=== PATIENT | male | born 1960 | race African-American/Black ===

== ENCOUNTER 2019-10-09 15:24 | Emergency (ER) | payer BC, OTHER ==
[2019-10-09 15:45] VITALS: BP 153/108; PULSE 107; O2SAT 94
--- NOTE | 2019-10-09 16:02 | ERPHSYRPT ---
- History of Present Illness Time Seen by Provider: 10/09/19 15:51 Source: patient Exam Limitations: no limitations Patient Subjective Stated Complaint: Pt fell outside on asphalt and landed on the left elbow, pt feels as though his elbow is broken, arm is swollen Triage Nursing Assessment: Pt walked into the ER, left elbow swollen and tender , hypertensive, tachycardic, rates pain 8/10, denies losing concsiousness, denies any other injuries Physician History: pt. states that he fell on asphalt about 2 hrs ago and landed on his left elbow - reports immediate swelling and pain - states he tripped - denies head injury/LOC/any other injuries - left elbow pain- 8/10, intermittent, increases with movement especially elevation of arm, decreased with not moving his arm Occurred: this evening Reason for Fall: tripped Injuries/Pain Location: upper extremity Loss of Consciousness: no loss of consciousness Quality: throbbing Severity of Pain-Max: moderate Severity of Pain-Current: moderate Modifying Factors: Improves With: movement, rest Associated Symptoms (Fall): denies symptoms Allergies/Adverse Reactions: No Known Drug Allergies Allergy (Verified 10/09/19 15:45) Home Medications: No Reportable Medications [No Reported Medications] 10/09/19 [History] - Review of Systems Eyes: No Symptoms Ears, Nose, & Throat: No Symptoms Respiratory: No Symptoms Cardiac: No Symptoms Abdominal/Gastrointestinal: No Symptoms Genitourinary Symptoms: No Symptoms Musculoskeletal: Fall, Injury, Joint Pain, Joint Swelling Skin: No Symptoms Neurological: No Symptoms Psychological: No Symptoms Endocrine: No Symptoms Hematologic/Lymphatic: No Symptoms Immunological/Allergic: No Symptoms All Other Systems: Reviewed and Negative - Past Medical History Pertinent Past Medical History: No - Past Surgical History Past Surgical History: No - Social History Smoking Status: Current every day smoker Exposure to second hand smoke: Yes Drug Use: marijuana Patient Lives Alone: No - Nursing Vital Signs Nursing Vital Signs: Initial Vital Signs Pulse Rate 107 H 10/09/19 15:40 Blood Pressure 153/108 10/09/19 15:40 O2 Sat by Pulse Oximetry 94 L 10/09/19 15:40 Pain Scale Pain Intensity 8 - An Coma Score Best Eye Response (Buchanan): (4) open spontaneously Best Verbal Response (Buchanan): (5) oriented Best Motor Response (An): (6) obeys commands Buchanan Total: 15 - Physical Exam General Appearance: no apparent distress Head Injury: no evidence of injury Eye Exam: PERRL/EOMI, eyes nml inspection ENT Exam: airway nml Neck Exam: supple, trachea midline, full range of motion, normal alignment, normal inspection, No focal neuro deficit Respiratory/Chest Exam: normal breath sounds, No chest tenderness, No respiratory distress Cardiovascular Exam: normal heart sounds, regular rate/rhythm, murmur Gastrointestinal Exam: soft, normal bowel sounds Back Exam: normal inspection Extremity Exam: capillary refill <3 sec, joint swelling, limited range of motion , pain with movement Peripheral Pulses: carotid (R): 4+, carotid (L): 4+, femoral (R): 4+, femoral (L ): 4+, dorsalis-pedis (R): 4+, dorsalis-pedis (L): 4+ Neurologic Exam: alert, oriented x 3, cooperative, 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 Skin Exam: normal color SpO2 Interpretation: normal SpO2: 94 O2 Delivery: Room Air Ordered Tests: Active Orders 24 hr Category Date Time Status ELBOW (MINIMUM 3 VIEWS) Stat Exams 10/09/19 16:02 Completed FOREARM Stat Exams 10/09/19 16:02 Completed HUMERUS Stat Exams 10/09/19 16:02 Taken Medication Summary Discontinued Medications Generic Name Dose Route Start Last Admin Trade Name Levi PRN Reason Stop Dose Admin Tramadol HCl 50 mg 10/09/19 17:01 Ultram 50 Mg PO 10/09/19 17:02 STAT ONE - Progress Progress Note: 10/09/19 17:06 x-ray of left elbow shows olecranon spur, posterior soft tissue swelling, no other lesions arm palced on sling, advised ice packs x 10-15 min TID f/u with pcp in 24-48 hrs for possible PT - Departure Departure Disposition: Home Clinical Impression: Injury of left elbow Condition: Stable Critical Care Time: No Referrals: SIDRA DAWSON [Primary Care Provider] - Additional Instructions: Discharge/Care Plan HEVER SIMS was seen on 10/09/19 in the Emergency Room. The patient was counseled regarding Diagnosis,Lab results, Imaging studies, need for follow up and when to return to the Emergency Room. Prescriptions given: Discharge Note I have spoken with the patient and/or caregivers. I have explained the patient' s condition, diagnosis and treatment plan based on the information available to me at this time. I have answered the patient's and/or caregiver's questions and addressed any concerns. The patient and/or caregivers have as good understanding of the patient's diagnosis, condition and treatment plan as can be expected at this point. The vital signs have been stable. The patient's condition is stable and appropriate for discharge from the emergency department. The patient will pursue further outpatient evaluation with the primary care physician or other designated or consulting physician as outlined in the discharge instructions. The patient and/or caregivers are agreeable to this plan of care and follow-up instructions have been explained in detail. The patient and/or caregivers have received these instruction. The patient/and or caregivers are aware that any significant change in condition or worsening of symptoms should prompt an immediate return to this or the closest emergency department or call 911.
--- NOTE | 2019-10-09 17:02 | XRAY ---
Indication: Pain following fall. Comparison: None 3 views of the left elbow demonstrates olecranon process spur, posterior soft tissue swelling, and posterior soft tissue microcalcifications probable sequela to old injury/inflammation. No other bony, articular, or soft tissue abnormalities.
--- NOTE | 2019-10-09 17:04 | XRAY ---
Indication: Elbow pain following fall. Comparison: None 2 views of the left forearm obtained. No bony, articular, or soft tissue abnormalities. Elbow reported separately.
[2019-10-09] MEDS ORDERED: ULTRAM 50 MG ONE (17:07)
--- NOTE | 2019-10-09 17:07 | XRAY ---
Indication: Elbow pain following fall. Comparison: None 2 views of the left humerus obtained. No bony, articular, or soft tissue abnormalities.
[2019-10-09] MEDS: ULTRAM 50 MG PO ONE (17:08)
== END 2019-10-09 17:14 | disposition home or self-care (01) ==
LOC: ED 15:24
DX: M25.522 Pain in left elbow (principal); M79.89 Other specified soft tissue disorders; W01.198A Fall on same level from slipping, tripping and stumbling with subsequent striking against other object, initial encounter; F12.90 Cannabis use, unspecified, uncomplicated
CPT/HCPCS: 73060; 73080; 73090; 99283; A9270-GY